=== PATIENT | male | born 2000 | race African-American/Black ===

== ENCOUNTER 2020-05-19 13:17 | Inpatient (IN) | payer OTHER ==
[2020-05-19] MEDS ORDERED: ALPRAZolam 0.25 MG TABLET PO ONE (14:41)
[2020-05-19] MEDS ORDERED: SODIUM CHLORIDE 1,000 ML IV STA (14:41)
[2020-05-19] MEDS ORDERED: ALPRAZolam 0.25 MG TABLET ONE (14:49)
[2020-05-19 15:16] LABS: BASO % 0.8 % (0-2.0); EOS % 1.2 % (0-4.5); HEMATOCRIT 30.4 % (35.4-49); HEMOGLOBIN 10.2 GM/dL (11.7-16.9); LYMPH % 18.7 % (8-40); MCH 28.9 pg (25.7-33.7); MCHC 33.5 g/dl (32.0-35.9); MEAN CELL VOLUME 86.2 fl (80-96); MEAN PLT VOLUME 7.8 fl (7.5-11.1); MONO % 14.2 % (3.8-10.2); NEUT % 65.1 % (42.8-82.8); PLATELET COUNT 460 K/MM3 (134-434); RBC 3.53 M/mm3 (4.00-5.60); RDW 14.4 % (11.9-15.9); WHITE BLOOD COUNT 13.4 K/mm3 (4.0-10.0)
[2020-05-19 15:46] LABS: POTASSIUM 4.3 mmol/L (3.5-5.1)
[2020-05-19 15:49] LABS: ALBUMIN 3.2 g/dl (3.4-5.0); BLOOD UREA NITROGEN 8.3 mg/dL (7-18); CALCIUM 9.8 mg/dL (8.5-10.1)
[2020-05-19 15:52] LABS: CREATININE 0.5 mg/dL (0.55-1.3)
[2020-05-19 15:54] LABS: BILIRUBIN,TOTAL 0.4 mg/dL (0.2-1); TOT PROT 8.1 g/dl (6.4-8.2)
[2020-05-19] MEDS ORDERED: MINERAL OIL ENEMA 133 ML ENEMA PR ONE (19:35)
[2020-05-19] MEDS ORDERED: ACETAMINOPHEN 1000 MG/100 ML VIAL (NON FORMULARY) IVPB ONE (20:55)
[2020-05-19] MEDS ORDERED: ACETAMINOPHEN INJECTION 100 ML IVPB ONE (21:03)
[2020-05-20] MEDS: DEXTROSE 5%-0.45% SALINE 1,000 ML IV SCH ×2 (01:45→05:49)
[2020-05-20] MEDS ORDERED: ACETAMINOPHEN 1000 MG/100 ML VIAL (NON FORMULARY) IVPB PRN (04:57)
[2020-05-20 05:22] LABS: URINE APPEARANCE CLEAR; URINE BILIRUBIN NEGATIVE (NEGATIVE); URINE COLOR YELLOW; URINE GLUCOSE (UA) NEGATIVE (NEGATIVE); URINE KETONE TRACE (NEGATIVE); URINE LEUK ESTERASE NEGATIVE (NEGATIVE); URINE NITRITE NEGATIVE (NEGATIVE); URINE PROTEIN NEGATIVE (NEGATIVE); URINE UROBILINOGEN 0.2 mg/dL (0.2-1.0)
[2020-05-20 07:52] VITALS: BMI 19.0
[2020-05-20 09:47] LABS: BASO % 0.5 % (0-2.0); EOS % 2.2 % (0-4.5); HEMATOCRIT 30.8 % (35.4-49); LYMPH % 17.1 % (8-40); MCH 28.3 pg (25.7-33.7); MCHC 32.5 g/dl (32.0-35.9); MEAN CELL VOLUME 87.2 fl (80-96); MONO % 12.3 % (3.8-10.2); NEUT % 67.9 % (42.8-82.8); PLATELET COUNT 407 K/MM3 (134-434); RBC 3.53 M/mm3 (4.00-5.60); RDW 14.5 % (11.9-15.9); WHITE BLOOD COUNT 11.4 K/mm3 (4.0-10.0)
[2020-05-20 10:50] LABS: POTASSIUM 4.2 mmol/L (3.5-5.1)
[2020-05-20 10:56] LABS: BLOOD UREA NITROGEN 9.8 mg/dL (7-18); CALCIUM 9.5 mg/dL (8.5-10.1)
[2020-05-20 10:59] LABS: CREATININE 0.4 mg/dL (0.55-1.3)
[2020-05-20 11:00] LABS: BILIRUBIN,TOTAL 0.5 mg/dL (0.2-1); TOT PROT 7.4 g/dl (6.4-8.2)
[2020-05-20] MEDS: COLLAGENASE CLOSTRIDIUM HIST. 30 GRAMS TUBE TP SCH (12:59)
[2020-05-20] MEDS: BISACODYL 10 MG SUPP.RECT PR SCH (12:59)
[2020-05-20] MEDS: METOCLOPRAMIDE HCL INJECTION 10 MG/2 ML VIAL IVPUSH SCH ×2 (13:01→22:42)
[2020-05-20] MEDS: ENOXAPARIN NA (PORCINE) 40 MG/0.4 ML DISP.SYRIN SQ SCH (13:01)
[2020-05-20] MEDS: DEXTROSE 5%-NORMAL SALINE 1,000 ML IV SCH (16:53)
[2020-05-21] MEDS: METOCLOPRAMIDE HCL INJECTION 10 MG/2 ML VIAL IVPUSH SCH ×3 (05:08→22:03)
[2020-05-21 10:14] LABS: BASO % 0.6 % (0-2.0); EOS % 2.5 % (0-4.5); HEMATOCRIT 29.8 % (35.4-49); HEMOGLOBIN 10.1 GM/dL (11.7-16.9); LYMPH % 15.3 % (8-40); MCH 29.3 pg (25.7-33.7); MEAN CELL VOLUME 86.2 fl (80-96); MEAN PLT VOLUME 7.8 fl (7.5-11.1); MONO % 9.4 % (3.8-10.2); NEUT % 72.2 % (42.8-82.8); PLATELET COUNT 468 K/MM3 (134-434); RBC 3.45 M/mm3 (4.00-5.60); RDW 14.9 % (11.9-15.9); WHITE BLOOD COUNT 9.4 K/mm3 (4.0-10.0)
[2020-05-21 10:34] LABS: BLOOD UREA NITROGEN 7.8 mg/dL (7-18); CALCIUM 9.6 mg/dL (8.5-10.1)
[2020-05-21 10:41] LABS: CREATININE 0.4 mg/dL (0.55-1.3)
[2020-05-21 10:42] LABS: BILIRUBIN,TOTAL 0.3 mg/dL (0.2-1)
[2020-05-21 10:43] LABS: TOT PROT 7.4 g/dl (6.4-8.2)
[2020-05-21] MEDS: ENOXAPARIN NA (PORCINE) 40 MG/0.4 ML DISP.SYRIN SQ SCH (11:53)
[2020-05-21] MEDS: BISACODYL 10 MG SUPP.RECT PR SCH (11:53)
[2020-05-21] MEDS: COLLAGENASE CLOSTRIDIUM HIST. 30 GRAMS TUBE TP SCH (11:54)
[2020-05-21] MEDS: DEXTROSE 5%-NORMAL SALINE 1,000 ML IV SCH (19:25)
[2020-05-21] MEDS: ACETAMINOPHEN 650 MG/20.3 ML ORAL SOLUTION (CUPS) PO PRN (19:26)
[2020-05-21] MEDS: VANCOMYCIN 1 GRAM (PRE-DOCKED) 1,000 MG/250 ML BAG IVPB SCH (22:03)
[2020-05-21 23:40] LABS: EPI CELLS 19 /uL (0-25.1); HYALINE CASTS 12 /uL (0-3.1); PH,URINE 5.5 (5.0-8.0); URINE APPEARANCE CLOUDY; URINE BACTERIA 700 /uL (0-1359); URINE BILIRUBIN NEGATIVE (NEGATIVE); URINE COLOR DK YELLOW; URINE GLUCOSE (UA) NEGATIVE (NEGATIVE); URINE KETONE 1+ (NEGATIVE); URINE LEUK ESTERASE 1+ (NEGATIVE); URINE NITRITE NEGATIVE (NEGATIVE); URINE PROTEIN 2+ (NEGATIVE); URINE RBC 868 /uL (0-23.9); URINE WBC 335 /uL (0-25.8)
[2020-05-22] MEDS: METOCLOPRAMIDE HCL INJECTION 10 MG/2 ML VIAL IVPUSH SCH ×3 (05:39→22:50)
[2020-05-22] MEDS: VANCOMYCIN 1 GRAM (PRE-DOCKED) 1,000 MG/250 ML BAG IVPB SCH ×2 (09:14→20:10)
[2020-05-22 09:22] LABS: BASO % 0.6 % (0-2.0); EOS % 2.3 % (0-4.5); HEMATOCRIT 29.4 % (35.4-49); MCH 29.1 pg (25.7-33.7); MEAN CELL VOLUME 85.6 fl (80-96); MEAN PLT VOLUME 7.6 fl (7.5-11.1); MONO % 10.2 % (3.8-10.2); NEUT % 71.9 % (42.8-82.8); PLATELET COUNT 482 K/MM3 (134-434); RBC 3.43 M/mm3 (4.00-5.60); RDW 14.3 % (11.9-15.9); WHITE BLOOD COUNT 10.4 K/mm3 (4.0-10.0)
[2020-05-22 09:49] LABS: POTASSIUM 3.5 mmol/L (3.5-5.1)
[2020-05-22 10:36] LABS: ALBUMIN 2.9 g/dl (3.4-5.0); CALCIUM 9.3 mg/dL (8.5-10.1)
[2020-05-22 10:37] LABS: BLOOD UREA NITROGEN 6.3 mg/dL (7-18)
[2020-05-22 10:41] LABS: BILIRUBIN,TOTAL 0.3 mg/dL (0.2-1); CREATININE 0.3 mg/dL (0.55-1.3); TOT PROT 7.2 g/dl (6.4-8.2)
[2020-05-22] MEDS: DEXTROSE 5%-NORMAL SALINE 1,000 ML IV SCH ×2 (12:51→17:30)
[2020-05-22] MEDS: ENOXAPARIN NA (PORCINE) 40 MG/0.4 ML DISP.SYRIN SQ SCH (12:52)
[2020-05-22] MEDS: BISACODYL 10 MG SUPP.RECT PR SCH (12:57)
[2020-05-22] MEDS: COLLAGENASE CLOSTRIDIUM HIST. 30 GRAMS TUBE TP SCH (13:19)
[2020-05-22] MEDS: AMINO ACIDS/PROTEIN HYDROLYS 30 ML LIQUID.PKT PEG SCH (17:25)
[2020-05-22] MEDS: ALBUTEROL SO4 0.083% IH SOL 2.5 MG/3 ML VIAL.NEB. NEB PRN (20:15)
[2020-05-23] MEDS: ALBUTEROL SO4 0.083% IH SOL 2.5 MG/3 ML VIAL.NEB. NEB PRN ×3 (02:15→20:10)
[2020-05-23] MEDS: ACETAMINOPHEN 650 MG/20.3 ML ORAL SOLUTION (CUPS) PO PRN (03:19)
[2020-05-23] MEDS: METOCLOPRAMIDE HCL INJECTION 10 MG/2 ML VIAL IVPUSH SCH ×3 (05:26→23:07)
[2020-05-23] MEDS: DEXTROSE 5%-NORMAL SALINE 1,000 ML IV SCH ×2 (08:16→15:22)
[2020-05-23] MEDS: VANCOMYCIN 1 GRAM (PRE-DOCKED) 1,000 MG/250 ML BAG IVPB SCH (08:20)
[2020-05-23] MEDS: AMINO ACIDS/PROTEIN HYDROLYS 30 ML LIQUID.PKT PEG SCH ×2 (08:21→19:00)
[2020-05-23 08:55] LABS: BASO % 0.6 % (0-2.0); EOS % 1.7 % (0-4.5); HEMATOCRIT 27.7 % (35.4-49); HEMOGLOBIN 9.4 GM/dL (11.7-16.9); LYMPH % 19.9 % (8-40); MCH 29.3 pg (25.7-33.7); MCHC 33.9 g/dl (32.0-35.9); MEAN CELL VOLUME 86.4 fl (80-96); MEAN PLT VOLUME 7.5 fl (7.5-11.1); MONO % 11.5 % (3.8-10.2); NEUT % 66.3 % (42.8-82.8); PLATELET COUNT 514 K/MM3 (134-434); RDW 14.5 % (11.9-15.9); WHITE BLOOD COUNT 9.1 K/mm3 (4.0-10.0)
[2020-05-23 10:50] LABS: POTASSIUM 3.6 mmol/L (3.5-5.1)
[2020-05-23 10:57] LABS: ALBUMIN 2.7 g/dl (3.4-5.0); BLOOD UREA NITROGEN 4.7 mg/dL (7-18)
[2020-05-23 11:00] LABS: CREATININE 0.4 mg/dL (0.55-1.3)
[2020-05-23 11:01] LABS: BILIRUBIN,TOTAL 0.3 mg/dL (0.2-1)
[2020-05-23] MEDS: MULTIVIT-MINERALS ORAL LIQUID PEG SCH (12:00)
[2020-05-23] MEDS: ENOXAPARIN NA (PORCINE) 40 MG/0.4 ML DISP.SYRIN SQ SCH (12:00)
[2020-05-23] MEDS ORDERED: PT OWN MED DRAWER 7, Y5N ONE ×2 (12:30→15:41)
[2020-05-23] MEDS: COLLAGENASE CLOSTRIDIUM HIST. 30 GRAMS TUBE TP SCH (12:42)
[2020-05-23] MEDS: AMOXICILLIN 500 MG CAPSULE (FP) PO SCH ×2 (15:23→23:07)
[2020-05-23] MEDS: SENNOSIDES 8.8 MG/5 ML BULK BOTTLE PEG SCH (23:07)
[2020-05-24] MEDS: DEXTROSE 5%-NORMAL SALINE 1,000 ML IV SCH (05:25)
[2020-05-24] MEDS: METOCLOPRAMIDE HCL INJECTION 10 MG/2 ML VIAL IVPUSH SCH (05:38)
[2020-05-24] MEDS: AMOXICILLIN 500 MG CAPSULE (FP) PO SCH ×4 (05:44→23:00)
[2020-05-24] MEDS: ALBUTEROL SO4 0.083% IH SOL 2.5 MG/3 ML VIAL.NEB. NEB PRN ×2 (08:00→16:35)
[2020-05-24 09:00] LABS: BASO % 0.4 % (0-2.0); EOS % 1.1 % (0-4.5); HEMATOCRIT 27.6 % (35.4-49); HEMOGLOBIN 9.3 GM/dL (11.7-16.9); LYMPH % 13.5 % (8-40); MCHC 33.6 g/dl (32.0-35.9); MEAN CELL VOLUME 86.5 fl (80-96); MEAN PLT VOLUME 7.4 fl (7.5-11.1); MONO % 10.2 % (3.8-10.2); NEUT % 74.8 % (42.8-82.8); PLATELET COUNT 501 K/MM3 (134-434); RBC 3.19 M/mm3 (4.00-5.60); RDW 14.5 % (11.9-15.9); WHITE BLOOD COUNT 11.7 K/mm3 (4.0-10.0)
[2020-05-24] MEDS ORDERED: PT OWN MED DRAWER 7, Y5N ONE ×2 (09:16→22:11)
[2020-05-24] MEDS: AMINO ACIDS/PROTEIN HYDROLYS 30 ML LIQUID.PKT PEG SCH ×2 (09:17→16:34)
[2020-05-24] MEDS: COLLAGENASE CLOSTRIDIUM HIST. 30 GRAMS TUBE TP SCH (09:18)
[2020-05-24] MEDS: ENOXAPARIN NA (PORCINE) 40 MG/0.4 ML DISP.SYRIN SQ SCH (09:18)
[2020-05-24] MEDS: MULTIVIT-MINERALS ORAL LIQUID PEG SCH (09:18)
[2020-05-24 09:50] LABS: CREATININE 0.3 mg/dL (0.55-1.3)
[2020-05-24 09:53] LABS: BILIRUBIN,TOTAL 0.2 mg/dL (0.2-1); TOT PROT 6.9 g/dl (6.4-8.2)
[2020-05-24 10:00] LABS: ALBUMIN 2.6 g/dl (3.4-5.0)
[2020-05-24 10:02] LABS: CALCIUM 9.2 mg/dL (8.5-10.1)
[2020-05-24 10:10] LABS: BLOOD UREA NITROGEN 2.4 mg/dL (7-18)
[2020-05-24] MEDS: FAMOTIDINE 40 MG/5 ML ORAL SUSPENSION PEG SCH (16:32)
[2020-05-24] MEDS: METOCLOPRAMIDE HCL 10 MG/10 ML UNIT DOSE CUP PO SCH (16:34)
[2020-05-24] MEDS: SENNOSIDES 8.8 MG/5 ML BULK BOTTLE PEG SCH ×2 (22:16→23:01)
[2020-05-24] MEDS ORDERED: AMOXICILLIN ORAL SUSPENSION - 250 MG/5 ML PO SCH (22:45)
[2020-05-24] MEDS: AMOXICILLIN ORAL SUSPENSION - 250 MG/5 ML PEG SCH (23:01)
[2020-05-25] MEDS: METOCLOPRAMIDE HCL 10 MG/10 ML UNIT DOSE CUP PO SCH ×3 (06:20→17:35)
[2020-05-25] MEDS: AMOXICILLIN ORAL SUSPENSION - 250 MG/5 ML PEG SCH (06:20)
[2020-05-25] MEDS: ALBUTEROL SO4 0.083% IH SOL 2.5 MG/3 ML VIAL.NEB. NEB PRN ×4 (07:45→20:25)
[2020-05-25] MEDS: ENOXAPARIN NA (PORCINE) 40 MG/0.4 ML DISP.SYRIN SQ SCH (11:03)
[2020-05-25] MEDS: AMINO ACIDS/PROTEIN HYDROLYS 30 ML LIQUID.PKT PEG SCH ×2 (11:03→17:36)
[2020-05-25] MEDS: COLLAGENASE CLOSTRIDIUM HIST. 30 GRAMS TUBE TP SCH (11:03)
[2020-05-25] MEDS: MULTIVIT-MINERALS ORAL LIQUID PEG SCH (11:04)
[2020-05-25] MEDS: FAMOTIDINE 40 MG/5 ML ORAL SUSPENSION PEG SCH (11:04)
[2020-05-25] MEDS: ACETAMINOPHEN 650 MG/20.3 ML ORAL SOLUTION (CUPS) PO PRN (12:51)
[2020-05-25] MEDS ORDERED: PT OWN MED DRAWER 7, Y5N ONE (12:54)
[2020-05-25] MEDS ORDERED: PIPERACILLIN/TAZOB 3.375 GM 3.375 GM in DEXTROSE 5%-WATER - 50 ML IVPB SCH (14:00)
[2020-05-25] MEDS ORDERED: DEXTROSE 5%-WATER - 50 ML IVPB ONE ×2 (17:30→21:43)
[2020-05-25] MEDS ORDERED: PIPERACILLIN/TAZOBACTAM 3.375 GM VIAL IVPB ONE ×2 (17:30→21:43)
[2020-05-25] MEDS: PIPERACILLIN/TAZOB 3.375 GM 3.375 GM in DEXTROSE 5%-WATER - 50 ML IVPB SCH ×2 (17:35→22:21)
[2020-05-25] MEDS: SENNOSIDES 8.8 MG/5 ML BULK BOTTLE PEG SCH (22:21)
[2020-05-26] MEDS ORDERED: PIPERACILLIN/TAZOBACTAM 3.375 GM VIAL IVPB ONE ×2 (02:23→08:59)
[2020-05-26] MEDS ORDERED: DEXTROSE 5%-WATER - 50 ML IVPB ONE ×2 (02:23→09:00)
[2020-05-26] MEDS: ALBUTEROL SO4 0.083% IH SOL 2.5 MG/3 ML VIAL.NEB. NEB PRN ×2 (03:01→14:10)
[2020-05-26] MEDS: PIPERACILLIN/TAZOB 3.375 GM 3.375 GM in DEXTROSE 5%-WATER - 50 ML IVPB SCH ×2 (03:20→10:32)
[2020-05-26] MEDS: METOCLOPRAMIDE HCL 10 MG/10 ML UNIT DOSE CUP PO SCH ×3 (06:35→18:37)
[2020-05-26] MEDS: ACETAMINOPHEN 650 MG/20.3 ML ORAL SOLUTION (CUPS) PO PRN ×2 (10:31→15:05)
[2020-05-26] MEDS: AMINO ACIDS/PROTEIN HYDROLYS 30 ML LIQUID.PKT PEG SCH ×2 (10:32→18:37)
[2020-05-26] MEDS: ENOXAPARIN NA (PORCINE) 40 MG/0.4 ML DISP.SYRIN SQ SCH (10:32)
[2020-05-26] MEDS: FAMOTIDINE 40 MG/5 ML ORAL SUSPENSION PEG SCH (10:33)
[2020-05-26] MEDS: MULTIVIT-MINERALS ORAL LIQUID PEG SCH (10:33)
[2020-05-26 11:14] LABS: POTASSIUM 4.4 mmol/L (3.5-5.1)
[2020-05-26 11:17] LABS: BLOOD UREA NITROGEN 7.6 mg/dL (7-18); CALCIUM 9.6 mg/dL (8.5-10.1)
[2020-05-26 11:20] LABS: CREATININE 0.4 mg/dL (0.55-1.3)
[2020-05-26] MEDS: COLLAGENASE CLOSTRIDIUM HIST. 30 GRAMS TUBE TP SCH (11:21)
[2020-05-26] MEDS: SODIUM CHLORIDE 1,000 ML IV SCH (14:41)
[2020-05-26] MEDS: AMPICILLIN NA/SULBACTAM NA 3 GM in SODIUM CHLORIDE 100 ML IVPB SCH ×2 (15:28→20:52)
[2020-05-26] MEDS ORDERED: METOPROLOL TARTRATE 25 MG TABLET (FP) GT ONE (15:30)
[2020-05-26 16:46] LABS: BASO % 0.7 % (0-2.0); EOS % 1.3 % (0-4.5); HEMATOCRIT 27.5 % (35.4-49); HEMOGLOBIN 9.2 GM/dL (11.7-16.9); LYMPH % 19.2 % (8-40); MCH 28.8 pg (25.7-33.7); MCHC 33.5 g/dl (32.0-35.9); MEAN CELL VOLUME 86.1 fl (80-96); MEAN PLT VOLUME 7.2 fl (7.5-11.1); MONO % 9.4 % (3.8-10.2); NEUT % 69.4 % (42.8-82.8); PLATELET COUNT 532 K/MM3 (134-434); RDW 14.4 % (11.9-15.9); WHITE BLOOD COUNT 12.7 K/mm3 (4.0-10.0)
[2020-05-26 17:00] LABS: POTASSIUM 3.9 mmol/L (3.5-5.1)
[2020-05-26 17:03] LABS: CALCIUM 9.2 mg/dL (8.5-10.1)
[2020-05-26 17:04] LABS: ALBUMIN 2.8 g/dl (3.4-5.0); BLOOD UREA NITROGEN 11.2 mg/dL (7-18)
[2020-05-26 17:07] LABS: CREATININE 0.4 mg/dL (0.55-1.3)
[2020-05-26 17:09] LABS: BILIRUBIN,TOTAL 0.2 mg/dL (0.2-1); TOT PROT 7.6 g/dl (6.4-8.2)
[2020-05-26] MEDS ORDERED: PT OWN MED DRAWER 7, Y5N ONE (18:32)
[2020-05-26] MEDS: SENNOSIDES 8.8 MG/5 ML BULK BOTTLE PEG SCH (21:01)
[2020-05-27] MEDS: AMPICILLIN NA/SULBACTAM NA 3 GM in SODIUM CHLORIDE 100 ML IVPB SCH ×4 (02:34→20:54)
[2020-05-27] MEDS: SODIUM CHLORIDE 1,000 ML IV SCH ×3 (05:59→18:14)
[2020-05-27] MEDS: ACETAMINOPHEN 650 MG/20.3 ML ORAL SOLUTION (CUPS) GT PRN ×3 (05:59→20:54)
[2020-05-27] MEDS: METOCLOPRAMIDE HCL 10 MG/10 ML UNIT DOSE CUP PO SCH ×3 (05:59→16:31)
[2020-05-27 09:26] LABS: BASO % 0.9 % (0-2.0); EOS % 1.2 % (0-4.5); HEMATOCRIT 26.9 % (35.4-49); HEMOGLOBIN 9.1 GM/dL (11.7-16.9); MCH 28.9 pg (25.7-33.7); MCHC 33.7 g/dl (32.0-35.9); MEAN CELL VOLUME 85.9 fl (80-96); MEAN PLT VOLUME 7.2 fl (7.5-11.1); MONO % 8.7 % (3.8-10.2); NEUT % 71.2 % (42.8-82.8); PLATELET COUNT 570 K/MM3 (134-434); RBC 3.13 M/mm3 (4.00-5.60); RDW 14.5 % (11.9-15.9); WHITE BLOOD COUNT 10.5 K/mm3 (4.0-10.0)
[2020-05-27 09:37] LABS: POTASSIUM 4.2 mmol/L (3.5-5.1)
[2020-05-27 09:44] LABS: ALBUMIN 2.8 g/dl (3.4-5.0)
[2020-05-27 09:45] LABS: BLOOD UREA NITROGEN 9.3 mg/dL (7-18)
[2020-05-27 09:49] LABS: CREATININE 0.4 mg/dL (0.55-1.3)
[2020-05-27 09:50] LABS: TOT PROT 7.5 g/dl (6.4-8.2)
[2020-05-27 09:51] LABS: BILIRUBIN,TOTAL 0.4 mg/dL (0.2-1)
[2020-05-27] MEDS ORDERED: PT OWN MED DRAWER 7, Y5N ONE ×4 (10:07→21:03)
[2020-05-27] MEDS: AMINO ACIDS/PROTEIN HYDROLYS 30 ML LIQUID.PKT PEG SCH ×2 (11:53→16:34)
[2020-05-27] MEDS: MULTIVIT-MINERALS ORAL LIQUID PEG SCH (11:56)
[2020-05-27] MEDS: FAMOTIDINE 40 MG/5 ML ORAL SUSPENSION PEG SCH (11:56)
[2020-05-27] MEDS: ENOXAPARIN NA (PORCINE) 40 MG/0.4 ML DISP.SYRIN SQ SCH (11:56)
[2020-05-27] MEDS: COLLAGENASE CLOSTRIDIUM HIST. 30 GRAMS TUBE TP SCH (11:57)
[2020-05-27] MEDS: ALBUTEROL SO4 0.083% IH SOL 2.5 MG/3 ML VIAL.NEB. NEB PRN (15:36)
[2020-05-27] MEDS: SENNOSIDES 8.8 MG/5 ML BULK BOTTLE PEG SCH (22:31)
[2020-05-28] MEDS: AMPICILLIN NA/SULBACTAM NA 3 GM in SODIUM CHLORIDE 100 ML IVPB SCH ×4 (02:43→20:54)
[2020-05-28] MEDS: METOCLOPRAMIDE HCL 10 MG/10 ML UNIT DOSE CUP PO SCH ×3 (06:19→16:12)
[2020-05-28 09:47] LABS: POTASSIUM 3.7 mmol/L (3.5-5.1)
[2020-05-28] MEDS ORDERED: BISACODYL 10 MG SUPP.RECT PR PRN (10:01)
[2020-05-28 10:10] LABS: CALCIUM 8.7 mg/dL (8.5-10.1)
[2020-05-28 10:11] LABS: BLOOD UREA NITROGEN 7.7 mg/dL (7-18)
[2020-05-28 10:14] LABS: CREATININE 0.3 mg/dL (0.55-1.3)
[2020-05-28] MEDS: AMINO ACIDS/PROTEIN HYDROLYS 30 ML LIQUID.PKT PEG SCH ×2 (11:09→18:43)
[2020-05-28] MEDS: FERROUS SO4 300 MG/5 ML ORAL SOLN UNIT DOSE CUPS GT SCH (11:10)
[2020-05-28] MEDS: MULTIVIT-MINERALS ORAL LIQUID PEG SCH (11:11)
[2020-05-28] MEDS: COLLAGENASE CLOSTRIDIUM HIST. 30 GRAMS TUBE TP SCH (11:12)
[2020-05-28] MEDS: FAMOTIDINE 40 MG/5 ML ORAL SUSPENSION PEG SCH (11:12)
[2020-05-28] MEDS: ENOXAPARIN NA (PORCINE) 40 MG/0.4 ML DISP.SYRIN SQ SCH (11:12)
[2020-05-28] MEDS ORDERED: PT OWN MED DRAWER 7, Y5N ONE ×2 (16:05→20:51)
[2020-05-28] MEDS: FERRIC CARBOXYMALTOSE 750 MG in SODIUM CHLORIDE 250 ML IVPB ONE ×2 (16:07→19:07)
[2020-05-28] MEDS: ESCITALOPRAM OXALATE 5 MG/5 ML PO SCH (16:13)
[2020-05-29] MEDS ORDERED: PT OWN MED DRAWER 7, Y5N ONE ×4 (02:59→20:47)
[2020-05-29] MEDS: AMPICILLIN NA/SULBACTAM NA 3 GM in SODIUM CHLORIDE 100 ML IVPB SCH ×4 (03:01→21:06)
[2020-05-29] MEDS: METOCLOPRAMIDE HCL 10 MG/10 ML UNIT DOSE CUP PO SCH ×2 (06:35→10:04)
[2020-05-29 09:38] LABS: POTASSIUM 3.6 mmol/L (3.5-5.1)
[2020-05-29 09:47] LABS: BLOOD UREA NITROGEN 8.2 mg/dL (7-18)
[2020-05-29 09:48] LABS: CALCIUM 8.9 mg/dL (8.5-10.1)
[2020-05-29 09:51] LABS: CREATININE 0.4 mg/dL (0.55-1.3)
[2020-05-29] MEDS: AMINO ACIDS/PROTEIN HYDROLYS 30 ML LIQUID.PKT PEG SCH ×3 (09:55→21:07)
[2020-05-29] MEDS: ESCITALOPRAM OXALATE 5 MG/5 ML PO SCH (09:55)
[2020-05-29] MEDS: FERROUS SO4 300 MG/5 ML ORAL SOLN UNIT DOSE CUPS GT SCH (09:56)
[2020-05-29] MEDS: MULTIVIT-MINERALS ORAL LIQUID PEG SCH (09:56)
[2020-05-29] MEDS: COLLAGENASE CLOSTRIDIUM HIST. 30 GRAMS TUBE TP SCH (09:57)
[2020-05-29] MEDS: ENOXAPARIN NA (PORCINE) 40 MG/0.4 ML DISP.SYRIN SQ SCH (09:57)
[2020-05-29] MEDS: FAMOTIDINE 40 MG/5 ML ORAL SUSPENSION PEG SCH (09:57)
[2020-05-29] MEDS: ALBUTEROL SO4 0.083% IH SOL 2.5 MG/3 ML VIAL.NEB. NEB PRN (11:03)
[2020-05-29] MEDS: BISACODYL 10 MG SUPP.RECT PR SCH (16:15)
[2020-05-30] MEDS ORDERED: PT OWN MED DRAWER 7, Y5N ONE ×3 (03:04→20:24)
[2020-05-30] MEDS: AMPICILLIN NA/SULBACTAM NA 3 GM in SODIUM CHLORIDE 100 ML IVPB SCH ×5 (03:11→20:28)
[2020-05-30] MEDS: AMINO ACIDS/PROTEIN HYDROLYS 30 ML LIQUID.PKT PEG SCH ×3 (05:11→22:16)
[2020-05-30 08:31] LABS: BASO % 0.7 % (0-2.0); EOS % 1.9 % (0-4.5); HEMATOCRIT 21.3 % (35.4-49); LYMPH % 26.7 % (8-40); MCH 28.7 pg (25.7-33.7); MCHC 33.1 g/dl (32.0-35.9); MEAN CELL VOLUME 86.8 fl (80-96); MEAN PLT VOLUME 7.2 fl (7.5-11.1); MONO % 8.5 % (3.8-10.2); NEUT % 62.2 % (42.8-82.8); PLATELET COUNT 514 K/MM3 (134-434); RBC 2.45 M/mm3 (4.00-5.60); RDW 14.5 % (11.9-15.9); WHITE BLOOD COUNT 7.8 K/mm3 (4.0-10.0)
[2020-05-30 08:55] LABS: POTASSIUM 4.2 mmol/L (3.5-5.1)
[2020-05-30 08:59] LABS: CALCIUM 8.9 mg/dL (8.5-10.1)
[2020-05-30 09:00] LABS: ALBUMIN 2.5 g/dl (3.4-5.0); BLOOD UREA NITROGEN 8.6 mg/dL (7-18)
[2020-05-30 09:03] LABS: CREATININE 0.3 mg/dL (0.55-1.3)
[2020-05-30 09:04] LABS: TOT PROT 6.9 g/dl (6.4-8.2)
[2020-05-30 09:13] LABS: BILIRUBIN,TOTAL 0.2 mg/dL (0.2-1)
[2020-05-30] MEDS: ESCITALOPRAM OXALATE 5 MG/5 ML PO SCH (10:49)
[2020-05-30] MEDS: BISACODYL 10 MG SUPP.RECT PR SCH (10:49)
[2020-05-30] MEDS: FERROUS SO4 300 MG/5 ML ORAL SOLN UNIT DOSE CUPS GT SCH ×2 (10:49→22:16)
[2020-05-30] MEDS: MULTIVIT-MINERALS ORAL LIQUID PEG SCH (10:49)
[2020-05-30] MEDS: ENOXAPARIN NA (PORCINE) 40 MG/0.4 ML DISP.SYRIN SQ SCH (10:49)
[2020-05-30] MEDS: COLLAGENASE CLOSTRIDIUM HIST. 30 GRAMS TUBE TP SCH (10:50)
[2020-05-30] MEDS: FAMOTIDINE 40 MG/5 ML ORAL SUSPENSION PEG SCH (10:50)
[2020-05-30] MEDS ORDERED: FERRIC CARBOXYMALTOSE 750 MG in SODIUM CHLORIDE 250 ML IVPB ONE (12:00)
[2020-05-30] MEDS: ALBUTEROL SO4 0.083% IH SOL 2.5 MG/3 ML VIAL.NEB. NEB PRN (18:24)
[2020-05-30] MEDS: ACETAMINOPHEN 650 MG/20.3 ML ORAL SOLUTION (CUPS) GT PRN (19:10)
[2020-05-31] MEDS ORDERED: PT OWN MED DRAWER 7, Y5N ONE ×5 (02:59→20:29)
[2020-05-31] MEDS: AMPICILLIN NA/SULBACTAM NA 3 GM in SODIUM CHLORIDE 100 ML IVPB SCH ×4 (03:04→20:53)
[2020-05-31] MEDS: AMINO ACIDS/PROTEIN HYDROLYS 30 ML LIQUID.PKT PEG SCH ×3 (05:22→22:11)
[2020-05-31] MEDS: FERROUS SO4 300 MG/5 ML ORAL SOLN UNIT DOSE CUPS GT SCH ×2 (10:37→22:11)
[2020-05-31] MEDS: ENOXAPARIN NA (PORCINE) 40 MG/0.4 ML DISP.SYRIN SQ SCH (10:37)
[2020-05-31] MEDS: BISACODYL 10 MG SUPP.RECT PR SCH (10:37)
[2020-05-31] MEDS: FAMOTIDINE 40 MG/5 ML ORAL SUSPENSION PEG SCH (10:38)
[2020-05-31] MEDS: ESCITALOPRAM OXALATE 5 MG/5 ML PO SCH (10:38)
[2020-05-31 10:39] LABS: BASO % 0.6 % (0-2.0); EOS % 1.3 % (0-4.5); HEMATOCRIT 32.1 % (35.4-49); HEMOGLOBIN 10.9 GM/dL (11.7-16.9); LYMPH % 23.5 % (8-40); MCH 28.9 pg (25.7-33.7); MCHC 33.9 g/dl (32.0-35.9); MEAN CELL VOLUME 85.3 fl (80-96); MEAN PLT VOLUME 7.1 fl (7.5-11.1); MONO % 7.6 % (3.8-10.2); PLATELET COUNT 532 K/MM3 (134-434); RBC 3.76 M/mm3 (4.00-5.60); RDW 14.4 % (11.9-15.9)
[2020-05-31] MEDS: MULTIVIT-MINERALS ORAL LIQUID PEG SCH (10:39)
[2020-05-31] MEDS: COLLAGENASE CLOSTRIDIUM HIST. 30 GRAMS TUBE TP SCH (10:41)
[2020-05-31 11:07] LABS: ALBUMIN 2.8 g/dl (3.4-5.0); BLOOD UREA NITROGEN 8.9 mg/dL (7-18); CALCIUM 9.5 mg/dL (8.5-10.1)
[2020-05-31 11:11] LABS: CREATININE 0.3 mg/dL (0.55-1.3)
[2020-05-31 11:12] LABS: BILIRUBIN,TOTAL 0.4 mg/dL (0.2-1)
[2020-05-31 11:13] LABS: TOT PROT 7.6 g/dl (6.4-8.2)
[2020-05-31] MEDS: ALBUTEROL SO4 0.083% IH SOL 2.5 MG/3 ML VIAL.NEB. NEB PRN (20:15)
[2020-05-31] MEDS: ACETAMINOPHEN 650 MG/20.3 ML ORAL SOLUTION (CUPS) GT PRN (20:53)
[2020-06-01] MEDS: ACETAMINOPHEN 650 MG/20.3 ML ORAL SOLUTION (CUPS) GT PRN (02:50)
[2020-06-01] MEDS: AMPICILLIN NA/SULBACTAM NA 3 GM in SODIUM CHLORIDE 100 ML IVPB SCH ×4 (02:50→21:08)
[2020-06-01] MEDS: AMINO ACIDS/PROTEIN HYDROLYS 30 ML LIQUID.PKT PEG SCH ×3 (05:10→21:08)
[2020-06-01 09:23] LABS: BASO % 0.6 % (0-2.0); EOS % 1.4 % (0-4.5); HEMATOCRIT 28.1 % (35.4-49); HEMATOCRIT 28.6 % (35.4-49); HEMOGLOBIN 9.6 GM/dL (11.7-16.9); LYMPH % 26.2 % (8-40); MCH 28.8 pg (25.7-33.7); MCH 29.3 pg (25.7-33.7); MCHC 33.6 g/dl (32.0-35.9); MEAN CELL VOLUME 85.9 fl (80-96); MEAN CELL VOLUME 86.3 fl (80-96); MEAN PLT VOLUME 6.9 fl (7.5-11.1); MONO % 8.5 % (3.8-10.2); NEUT % 63.3 % (42.8-82.8); PLATELET COUNT 489 K/MM3 (134-434); PLATELET COUNT 497 K/MM3 (134-434); RBC 3.25 M/mm3 (4.00-5.60); RBC 3.33 M/mm3 (4.00-5.60); RDW 14.3 % (11.9-15.9); RDW 14.9 % (11.9-15.9); WHITE BLOOD COUNT 9.1 K/mm3 (4.0-10.0); WHITE BLOOD COUNT 9.2 K/mm3 (4.0-10.0)
[2020-06-01 09:47] LABS: POTASSIUM 4.1 mmol/L (3.5-5.1)
[2020-06-01] MEDS ORDERED: PT OWN MED DRAWER 7, Y5N ONE ×4 (09:55→20:22)
[2020-06-01] MEDS: MULTIVIT-MINERALS ORAL LIQUID PEG SCH (10:00)
[2020-06-01 10:03] LABS: BLOOD UREA NITROGEN 10.2 mg/dL (7-18)
[2020-06-01] MEDS: ESCITALOPRAM OXALATE 5 MG/5 ML PO SCH (10:03)
[2020-06-01] MEDS: FERROUS SO4 300 MG/5 ML ORAL SOLN UNIT DOSE CUPS GT SCH ×2 (10:03→21:08)
[2020-06-01] MEDS: BISACODYL 10 MG SUPP.RECT PR SCH (10:03)
[2020-06-01] MEDS: ENOXAPARIN NA (PORCINE) 40 MG/0.4 ML DISP.SYRIN SQ SCH (10:04)
[2020-06-01] MEDS: FAMOTIDINE 40 MG/5 ML ORAL SUSPENSION PEG SCH (10:04)
[2020-06-01] MEDS: COLLAGENASE CLOSTRIDIUM HIST. 30 GRAMS TUBE TP SCH (10:04)
[2020-06-01 10:05] LABS: CALCIUM 8.9 mg/dL (8.5-10.1)
[2020-06-01 10:07] LABS: CREATININE 0.3 mg/dL (0.55-1.3)
[2020-06-02] MEDS: AMPICILLIN NA/SULBACTAM NA 3 GM in SODIUM CHLORIDE 100 ML IVPB SCH ×2 (02:33→10:20)
[2020-06-02] MEDS: AMINO ACIDS/PROTEIN HYDROLYS 30 ML LIQUID.PKT PEG SCH ×3 (05:17→21:33)
[2020-06-02 09:25] LABS: EOS % 1.6 % (0-4.5); HEMATOCRIT 28.7 % (35.4-49); HEMOGLOBIN 9.8 GM/dL (11.7-16.9); LYMPH % 22.1 % (8-40); MCH 29.1 pg (25.7-33.7); MEAN CELL VOLUME 85.6 fl (80-96); MONO % 7.3 % (3.8-10.2); PLATELET COUNT 503 K/MM3 (134-434); RBC 3.35 M/mm3 (4.00-5.60); RDW 14.6 % (11.9-15.9); WHITE BLOOD COUNT 9.1 K/mm3 (4.0-10.0)
[2020-06-02] MEDS: FERROUS SO4 300 MG/5 ML ORAL SOLN UNIT DOSE CUPS GT SCH ×2 (10:21→21:33)
[2020-06-02] MEDS: MULTIVIT-MINERALS ORAL LIQUID PEG SCH (10:21)
[2020-06-02] MEDS: BISACODYL 10 MG SUPP.RECT PR SCH (10:21)
[2020-06-02] MEDS: ENOXAPARIN NA (PORCINE) 40 MG/0.4 ML DISP.SYRIN SQ SCH (10:21)
[2020-06-02] MEDS: FAMOTIDINE 40 MG/5 ML ORAL SUSPENSION PEG SCH (10:22)
[2020-06-02] MEDS: ESCITALOPRAM OXALATE 5 MG/5 ML PO SCH (10:22)
[2020-06-02] MEDS ORDERED: PT OWN MED DRAWER 7, Y5N ONE (13:07)
[2020-06-02] MEDS: COLLAGENASE CLOSTRIDIUM HIST. 30 GRAMS TUBE TP SCH (15:08)
[2020-06-03] MEDS: AMINO ACIDS/PROTEIN HYDROLYS 30 ML LIQUID.PKT PEG SCH ×3 (05:23→21:58)
[2020-06-03] MEDS ORDERED: PT OWN MED DRAWER 7, Y5N ONE (08:50)
[2020-06-03] MEDS: FERROUS SO4 300 MG/5 ML ORAL SOLN UNIT DOSE CUPS GT SCH ×2 (09:12→21:58)
[2020-06-03] MEDS: ENOXAPARIN NA (PORCINE) 40 MG/0.4 ML DISP.SYRIN SQ SCH (09:23)
[2020-06-03] MEDS: ESCITALOPRAM OXALATE 5 MG/5 ML PO SCH (10:25)
[2020-06-03] MEDS: MULTIVIT-MINERALS ORAL LIQUID PEG SCH (10:25)
[2020-06-03] MEDS: FAMOTIDINE 40 MG/5 ML ORAL SUSPENSION PEG SCH (10:26)
[2020-06-03] MEDS: BISACODYL 10 MG SUPP.RECT PR SCH (11:02)
[2020-06-03] MEDS: COLLAGENASE CLOSTRIDIUM HIST. 30 GRAMS TUBE TP SCH (11:22)
[2020-06-03] MEDS: ACETAMINOPHEN 650 MG/20.3 ML ORAL SOLUTION (CUPS) GT PRN (13:02)
[2020-06-03] MEDS: ALBUTEROL SO4 0.083% IH SOL 2.5 MG/3 ML VIAL.NEB. NEB PRN (14:31)
[2020-06-04] MEDS: AMINO ACIDS/PROTEIN HYDROLYS 30 ML LIQUID.PKT PEG SCH ×3 (06:18→22:27)
[2020-06-04] MEDS ORDERED: PT OWN MED DRAWER 7, Y5N ONE (09:33)
[2020-06-04] MEDS: FERROUS SO4 300 MG/5 ML ORAL SOLN UNIT DOSE CUPS GT SCH ×2 (09:40→22:27)
[2020-06-04] MEDS: ESCITALOPRAM OXALATE 5 MG/5 ML PO SCH (09:40)
[2020-06-04] MEDS: ENOXAPARIN NA (PORCINE) 40 MG/0.4 ML DISP.SYRIN SQ SCH (09:40)
[2020-06-04] MEDS: BISACODYL 10 MG SUPP.RECT PR SCH (09:41)
[2020-06-04] MEDS: MULTIVIT-MINERALS ORAL LIQUID PEG SCH (09:41)
[2020-06-04] MEDS: FAMOTIDINE 40 MG/5 ML ORAL SUSPENSION PEG SCH (09:41)
[2020-06-04] MEDS: COLLAGENASE CLOSTRIDIUM HIST. 30 GRAMS TUBE TP SCH (09:42)
[2020-06-04 10:31] LABS: BASO % 0.7 % (0-2.0); EOS % 1.4 % (0-4.5); HEMATOCRIT 30.8 % (35.4-49); HEMOGLOBIN 10.5 GM/dL (11.7-16.9); LYMPH % 20.6 % (8-40); MCH 29.6 pg (25.7-33.7); MCHC 34.1 g/dl (32.0-35.9); MEAN PLT VOLUME 6.9 fl (7.5-11.1); MONO % 6.9 % (3.8-10.2); NEUT % 70.4 % (42.8-82.8); PLATELET COUNT 423 K/MM3 (134-434); RBC 3.54 M/mm3 (4.00-5.60); RDW 14.8 % (11.9-15.9); WHITE BLOOD COUNT 9.4 K/mm3 (4.0-10.0)
[2020-06-04 10:53] LABS: CALCIUM 9.6 mg/dL (8.5-10.1)
[2020-06-04 10:54] LABS: BLOOD UREA NITROGEN 14.9 mg/dL (7-18)
[2020-06-04 10:57] LABS: CREATININE 0.5 mg/dL (0.55-1.3)
[2020-06-04 10:59] LABS: BILIRUBIN,TOTAL 0.2 mg/dL (0.2-1); TOT PROT 7.6 g/dl (6.4-8.2)
[2020-06-04 11:01] LABS: POTASSIUM 3.9 mmol/L (3.5-5.1)
[2020-06-04] MEDS: ACETAMINOPHEN 650 MG/20.3 ML ORAL SOLUTION (CUPS) GT PRN (20:34)
[2020-06-05] MEDS: AMINO ACIDS/PROTEIN HYDROLYS 30 ML LIQUID.PKT PEG SCH ×2 (05:06→14:55)
[2020-06-05] MEDS ORDERED: PT OWN MED DRAWER 7, Y5N ONE (09:55)
[2020-06-05] MEDS: FAMOTIDINE 40 MG/5 ML ORAL SUSPENSION PEG SCH (10:15)
[2020-06-05] MEDS: COLLAGENASE CLOSTRIDIUM HIST. 30 GRAMS TUBE TP SCH (10:16)
[2020-06-05] MEDS: FERROUS SO4 300 MG/5 ML ORAL SOLN UNIT DOSE CUPS GT SCH (10:16)
[2020-06-05] MEDS: BISACODYL 10 MG SUPP.RECT PR SCH (10:16)
[2020-06-05] MEDS: ESCITALOPRAM OXALATE 5 MG/5 ML PO SCH (10:16)
[2020-06-05] MEDS: MULTIVIT-MINERALS ORAL LIQUID PEG SCH (10:16)
[2020-06-05] MEDS: ENOXAPARIN NA (PORCINE) 40 MG/0.4 ML DISP.SYRIN SQ SCH (10:16)
[2020-06-05] MEDS: ACETAMINOPHEN 650 MG/20.3 ML ORAL SOLUTION (CUPS) GT PRN (11:18)
[2020-06-05] MEDS ORDERED: traMADol HCL 50 MG TABLET NGT ONE (15:30)
[2020-06-05 15:50] VITALS: BP 101/67; PULSE 103
[2020-06-05 16:51] VITALS: TEMP 98.3
== END 2020-06-05 17:14 | DRG 247 ==
LOC: JER 13:17 → JERBED 18:57 → J5S 05-20 05:23
PROVIDERS: ADMIT Internal Medicine; ATTEND Family Medicine
PROC: 5A1955Z Respiratory Ventilation, Greater than 96 Consecutive Hours (ICD-10-PCS; 2020-05-19)
PROC: 2W15X6Z Compression of Back using Pressure Dressing (ICD-10-PCS; principal; 2020-06-04)
DX: K56.7 Ileus, unspecified (principal); J18.9 Pneumonia, unspecified organism; K59.09 Other constipation; G82.50 Quadriplegia, unspecified; J44.9 Chronic obstructive pulmonary disease, unspecified; J96.12 Chronic respiratory failure with hypercapnia; D72.829 Elevated white blood cell count, unspecified; E87.1 Hypo-osmolality and hyponatremia; L89.154 Pressure ulcer of sacral region, stage 4; L89.323 Pressure ulcer of left buttock, stage 3; L89.313 Pressure ulcer of right buttock, stage 3; R50.9 Fever, unspecified; I20.0 Unstable angina; R13.10 Dysphagia, unspecified; N39.0 Urinary tract infection, site not specified; B95.2 Enterococcus as the cause of diseases classified elsewhere; F20.9 Schizophrenia, unspecified; D64.9 Anemia, unspecified; Z93.1 Gastrostomy status; Z93.0 Tracheostomy status; Z99.81 Dependence on supplemental oxygen; Z20.822 Contact with and (suspected) exposure to COVID-19
CPT/HCPCS: 36415; 36430; 71045-TC-FY; 74018-TC-FY; 74177-TC; 74230-TC-FY; 80048; 80053; 81003; 82272; 82436; 82607; 82728; 83540; 83550; 83605; 83690; 83930; 83935; 84133; 84300; 84443; 85025; 85027; 85651; 86140; 86850; 86900; 86901; 86922; 87040; 87070; 87077; 87086; 87186; 87205; 92611-GN; 93005; 93010; 94002; 94640; 97163-GP; 99285-25; C9803; J0131; J1439; P9058; U0003